=== PATIENT | male | born 1990 | race Caucasian/White ===

== ENCOUNTER 2021-05-13 14:30 | Outpatient (CLI) | payer OTHER | END 2021-05-13 14:31 | disposition home or self-care (01) | LOC: RAD 14:30 | PROVIDERS: ATTEND Neurological Surgery | DX: M54.50 Low back pain, unspecified (principal) | CPT/HCPCS: 72120 ==

== ENCOUNTER 2023-06-08 06:42 | Day surgery (SDC) | payer SELFPAY ==
[2023-06-06 15:29] VITALS: BMI 39.3
[2023-06-08] MEDS ORDERED: Bupivacaine 0.25% HCL 30 ML VIAL ONE (08:23)
[2023-06-08] MEDS ORDERED: Lidocaine 2% PF 5 ML VIAL ONE ×2 (08:23→08:56)
[2023-06-08] MEDS ORDERED: EPINEPHrine 1 MG/ML VIAL ONE (08:23)
[2023-06-08] MEDS ORDERED: Bacitracin Zinc Ointment 30 gm TUBE ONE (08:23)
[2023-06-08] MEDS ORDERED: Rocuronium Bromide 10 MG/ML (10ML VIAL) ONE (08:24)
[2023-06-08] MEDS ORDERED: Famotidine/PF 20 mg/2ml Vial ONE (08:52)
[2023-06-08] MEDS ORDERED: cefOXitin 2 GM VIAL ONE (08:55)
[2023-06-08] MEDS ORDERED: Sodium Chloride 0.9% 100 ML ONE (08:55)
[2023-06-08] MEDS ORDERED: fentaNYL PF 100 MCG/2 ML SYRINGE ONE (08:56)
[2023-06-08] MEDS ORDERED: PROPOFOL 20 ML ONE ×2 (08:56→09:10)
[2023-06-08] MEDS ORDERED: fentaNYL 50 mcg/mL 1 mL Vial ONE ×2 (09:15→09:24)
[2023-06-08] MEDS ORDERED: Ketorolac Tromethamine 30 MG (1 mL) VIAL ONE (09:17)
[2023-06-08] MEDS ORDERED: Ondansetron PF 4 MG/2 ML Vial ONE (09:17)
[2023-06-08] MEDS ORDERED: Glycopyrrolate 0.2 MG/ML 5 ML SYRINGE ONE (09:18)
[2023-06-08] MEDS ORDERED: Dexamethasone 20 MG/5 ML VIAL ONE (09:18)
[2023-06-08] MEDS ORDERED: HYDROcodone/Acetaminophen 5/325 mg Tablet ONE (10:33)
== END 2023-06-08 11:28 | disposition home or self-care (01) ==
LOC: SDC 06:42
PROVIDERS: ATTEND Surgery
PROC: 0D8R0ZZ Division of Anal Sphincter, Open Approach (ICD-10-PCS; principal; 2023-06-08)
DX: K60.3 Anal fistula (principal); I10 Essential (primary) hypertension; F32.A Depression, unspecified; F41.9 Anxiety disorder, unspecified; Z79.899 Other long term (current) drug therapy; Z88.1 Allergy status to other antibiotic agents
CPT/HCPCS: J0171; J0665; J0694; J1100; J1885; J2001; J2405; J2704; J3010; J3490; S0028